=== PATIENT | female | born 1990 | race Two or more races ===

== ENCOUNTER 2021-10-24 12:42 | Emergency (ER) | payer SELFPAY ==
[2021-10-24 13:37] VITALS: BP 129/89; PULSE 91; RESP 18; TEMP 98.1; BMI 28.3
[2021-10-24] MEDS ORDERED: SODIUM CHLORIDE 1,000 ML IV STA (15:04)
[2021-10-24] MEDS ORDERED: ACETAMINOPHEN 1000 MG/100 ML BAG IVPB ONE (15:04)
[2021-10-24] MEDS ORDERED: METOCLOPRAMIDE HCL INJECTION 10 MG/2 ML VIAL IVPB ONE (15:04)
[2021-10-24] MEDS ORDERED: METOCLOPRAMIDE HCL INJECTION 10 MG/2 ML VIAL ONE (15:30)
[2021-10-24] MEDS ORDERED: ACETAMINOPHEN INJECTION 100 ML IVPB ONE (15:30)
[2021-10-24 16:09] LABS: BASO % 0.3 % (0-2.0); EOS % 1.5 % (0-4.5); HEMATOCRIT 39.5 % (32.4-45.2); HEMOGLOBIN 13.8 GM/dL (10.7-15.3); MCH 31.7 pg (25.7-33.7); MCHC 35.1 g/dl (32.0-36.0); MEAN CELL VOLUME 90.5 fl (80-96); MEAN PLT VOLUME 7.7 fl (7.5-11.1); MONO % 5.7 % (3.8-10.2); NEUT % 70.5 % (42.8-82.8); PLATELET COUNT 302 10^3/uL (134-434); RBC 4.36 M/mm3 (3.60-5.2); RDW 12.5 % (11.6-15.6); WHITE BLOOD COUNT 11.2 K/mm3 (4.0-10.0)
[2021-10-24 16:32] LABS: ALBUMIN 4.1 g/dl (3.4-5.0); BLOOD UREA NITROGEN 7.9 mg/dL (7-18); CALCIUM 9.7 mg/dL (8.5-10.1); MAGNESIUM 1.6 mg/dL (1.8-2.4)
[2021-10-24 16:36] LABS: CREATININE 0.6 mg/dL (0.55-1.3)
[2021-10-24 16:37] LABS: BILIRUBIN,TOTAL 0.6 mg/dL (0.2-1)
== END 2021-10-24 16:45 | disposition home or self-care (01) ==
LOC: JER 12:42
PROC: 3E033GC Introduction of Other Therapeutic Substance into Peripheral Vein, Percutaneous Approach (ICD-10-PCS; principal; 2021-10-24)
DX: G43.909 Migraine, unspecified, not intractable, without status migrainosus (principal)
CPT/HCPCS: 36415; 70450-TC; 80053; 83735; 85025; 99285-25